=== PATIENT | female | born 1970 | race Caucasian/White ===

== ENCOUNTER → 2018-11-07 | Outpatient (CLI) | payer BC ==
--- NOTE | 2018-11-07 22:36 | MR ---
EXAMINATION TYPE: MR knee LT wo con DATE OF EXAM: 11/07/2018 COMPARISON: NONE HISTORY: Left knee pain after injury. Outer pain and swelling for 2 weeks after injury. TECHNIQUE: Multiplanar, multisequence images of the knee is performed without IV contrast. FINDINGS: MEDIAL MENISCUS: Anterior horn is intact without tear. Globular increased signal posterior horn does not distinctly extend to articular surface. LATERAL MENISCUS: Anterior and posterior horns are intact without tear. CRUCIATE LIGAMENTS: The posterior cruciate ligament is intact and unremarkable. Anterior cruciate lig ament fibers are intact with slightly irregular course and surrounding fluid and thickening noted. COLLATERAL LIGAMENTS: The medial collateral ligament and lateral collateral ligament complex are inta ct and unremarkable. EXTENSOR MECHANISM: Visualized quadriceps and patellar tendons are intact. EFFUSION: No significant suprapatellar joint effusion. POPLITEAL CYST: No popliteal/pereira cyst. TRICOMPARTMENT SPACES: Moderate narrowing patellofemoral compartment with mild spurring. Mild narrowi ng and spurring medial and lateral tibiofemoral compartments CARTILAGE: Please patella with thinning of articular cartilage posterior patellar pole, full-thicknes s loss is seen centrally sagittal image 14 and axial image 15. BONE MARROW SIGNAL: Some overall heterogeneity. Subchondral cystic change central tibial condyles not ed with [id number] tibial condylar spurring. OTHER: No additional significant abnormality is appreciated. IMPRESSION: 1. Possible intrasubstance tear posterior horn medial meniscus, no full-thickness meniscal tear. 2. No full-thickness ACL tear, myxoid degeneration felt present. 3. Mild to moderate tricompartment degenerative changes most prominent patellofemoral compartment susana ewhat pronounced for patient's age.
== END | disposition home or self-care (01) ==
LOC: RADMRIMAIN 19:18
PROVIDERS: ATTEND Family Medicine
DX: S89.92XA Unspecified injury of left lower leg, initial encounter (principal); M17.12 Unilateral primary osteoarthritis, left knee

== ENCOUNTER 2023-01-01 07:59 | Emergency (ER) | payer BC ==
[2023-01-01] MEDS ORDERED: KETOROLAC 15 MG/ML 1 ML VIAL IVP STA (08:17)
[2023-01-01] MEDS ORDERED: methylPREDNISolone SOD SUCCI 125 MG/2 ML VIAL IV STA (08:17)
[2023-01-01] MEDS ORDERED: ORPHENADRINE 30 MG/ML 2 ML VIAL IVP STA (08:17)
--- NOTE | 2023-01-01 08:40 | XR ---
EXAMINATION TYPE: XR shoulder complete LT DATE OF EXAM: 01/01/2023 COMPARISON: NONE HISTORY: Pain TECHNIQUE: Shoulder examined in 3 projections. FINDINGS: The humeral head articulates with the glenoid. The acromio-clavicular junction is normal. No acute fractures or dislocations are evident. A follow up study can be performed 7-10 days from acute trauma for continued pain. MRI can be perfor med if soft tissue evaluation would be of benefit. IMPRESSION: 1. No acute osseous left shoulder abnormality.
--- NOTE | 2023-01-01 08:41 | ED ---
Neck Injury/Pain HPI - General Chief Complaint: Neck Pain/Injury Stated Complaint: Lt arm and shoulder pain Time Seen by Provider: 01/01/23 08:06 Source: patient, RN notes reviewed Mode of arrival: ambulatory Limitations: no limitations - History of Present Illness Initial Comments: This is a 52-year-old female who presents to the emergency department for left- sided neck/shoulder pain. Patient states that she was moving around in bed this morning and started to develop pain to the left side of the neck and behind the left shoulder. She is now having numbness and tingling going down the left arm. She took 800 mg of ibuprofen without any relief in symptoms. This has happened to her before, but states that it usually goes away on its own, which has not been the case this time. Pain is worse with movement. She does note problems with rotator cuff injuries and problems with the discs in her neck. States that she has not had imaging on these areas in a long time. Denies any fevers, chills, sore throat, cough, dyspnea, chest pain, palpitations, abdominal pain, nausea, vomiting, diarrhea, or headaches. MD Complaint: neck pain - Related Data Previous Rx's Medication Instructions Recorded HYDROcodone/APAP 5-325MG [[place] 1 tab PO Q6HR PRN 3 Days #12 tab 01/01/23 5-325] methocarbamoL [Robaxin-750] 1,500 mg PO QID PRN #30 tab 01/01/23 predniSONE 50 mg PO DAILY 5 Days #5 tab 01/01/23 Allergies Allergy/AdvReac Type Severity Reaction Status Date / Time enalapril Allergy Swelling Verified 01/01/23 08:02 Review of Systems ROS Statement: Those systems with pertinent positive or pertinent negative responses have been documented in the HPI. ROS Other: All systems not noted in ROS Statement are negative. Past Medical History Past Medical History: Hypertension, Thyroid Disorder History of Any Multi-Drug Resistant Organisms: None Reported Past Surgical History: Joint Replacement, Orthopedic Surgery Additional Past Surgical History / Comment(s): head trauma with boubacar, left shoulder repair. Past Psychological History: No Psychological Hx Reported Smoking Status: Former smoker Past Alcohol Use History: Rare Past Drug Use History: None Reported General Exam Limitations: no limitations General appearance: alert, in no apparent distress Head exam: Present: atraumatic, normocephalic, normal inspection Neck exam: Present: full ROM Respiratory exam: Present: normal lung sounds bilaterally. Absent: respiratory distress, wheezes, rales, rhonchi, stridor Cardiovascular Exam: Present: regular rate, normal rhythm, normal heart sounds. Absent: systolic murmur, diastolic murmur, rubs, gallop, clicks Extremities exam: Present: other (Tenderness to palpation over the left lateral side of the neck and over the posterior aspect of the left shoulder. Range of motion of the left upper extremity induces pain. 2+ radial pulses.) Neurological exam: Present: alert, oriented X3, CN II-XII intact Psychiatric exam: Present: normal affect, normal mood Skin exam: Present: warm, dry, intact, normal color. Absent: rash Course Vital Signs 01/01/23 01/01/23 08:02 11:17 Temperature 98.6 F 98.3 F Pulse Rate 57 L 60 Respiratory 18 20 Rate Blood Pressure 185/88 158/76 O2 Sat by Pulse 99 97 Oximetry Medical Decision Making - Medical Decision Making This is a 52-year-old female who presents to the emergency department for neck and shoulder pain. Was pt. sent in by a medical professional or institution? @ -No Did you speak to anyone other than the patient for history? @ -No Did you review nursing and triage notes? @ -Yes, and I agree, it is accurate with regards to the patient's symptoms. Were old charts reviewed? @ -No Differential Diagnosis? @ -Differential Neck/Shoulder Pain: Fracture, dislocation, cervical radiculopathy, strain, AL, this is not meant to be an all-inclusive list. EKG interpreted by me (3pts min.)? @ -Not obtained X-rays interpreted by me (1pt min.)? @ -X-ray of the cervical spine and left shoulder obtained. My interpretation identifies no acute fractures. CT interpreted by me (1pt min.)? @ -Not obtained U/S interpreted by me (1pt. min.)? @ -Not obtained What testing was considered but not performed? (CT, X-rays, U/S, labs)? Why? @ -None What meds were considered but not given? Why? @ -None Did you discuss the management of the patient with other professionals? @ -No Did you reconcile home meds? @ -No Was smoking cessation discussed for >3mins.? @ -No Was critical care preformed (if so, how long)? @ -No Were there social determinants of health that impacted care today? How? (Homelessness, low income, unemployed, alcoholism, drug addiction, transportation, low edu. Level, literacy, decrease access to med. care, alf, rehab)? @ -No Was there de-escalation of care discussed even if they declined? (Discuss DNR or withdrawal of care, Hospice)? @ -No What co-morbidities impacted this encounter? (DM, HTN, Smoking, COPD, CAD, Cancer, CVA, Hep., AIDS, mental health diagnosis, sleep apnea, morbid obesity)? @ -None Was patient admitted / discharged? @ -Discharged. Patient's symptoms are all reproducible on examination. Because she has known problems with her neck and left shoulder, we did obtain imaging. X-rays of the cervical spine and left shoulder obtained revealing no acute findings. She does have degenerative changes in the cervical spine. Given the musculoskeletal tenderness with numbness and tingling, her presentation is most consistent with a cervical radiculopathy. She was given a dose of Toradol, Solu-Medrol, and Norflex. On reevaluation, the pain was still fairly prominent, and she was subsequently given a dose of Dilauded. Pain was m uch improved following the Dilaudid and the patient felt stable for discharge home. Prescription for prednisone, Robaxin, and [place] provided with dosing instructions reviewed. She is advised to take the [place] very sparingly when her pain is the most severe and I advised that the [place] and Robaxin are sedating and she should avoid driving or operating machinery when taking them. She'll otherwise follow up with her PCP for reevaluation. Undiagnosed new problem with uncertain prognosis? @ -None Drug Therapy requiring intensive monitoring for toxicity (Heparin, Nitro, Insulin, Cardizem)? @ -None Were any procedures done? @ -None Diagnosis/symptom? @ -Cervical radiculopathy Acute, or Chronic, or Acute on Chronic? @ -Acute Uncomplicated (without systemic symptoms) or Complicated (systemic symptoms)? @ -Uncomplicated Side effects of treatment? @ -None Exacerbation, Progression, or Severe Exacerbation] @ -Not applicable Poses a threat to life or bodily function? @ -No Return precautions reviewed in depth, the patient is instructed to return to the emergency department with any new, worsening, or concerning symptoms. Patient verbalized understanding. This case was discussed in detail with the attending ED physician, Dr. Weiss. Presentation, findings, and treatment plan discussed in detail as well. - Radiology Data Radiology results: report reviewed, image reviewed Disposition Clinical Impression: Strain of neck muscle, Cervical radiculopathy Disposition: HOME SELF-CARE Instructions (If sedation given, give patient instructions): Cervical Strain (ED), Cervical Radiculopathy (ED) Additional Instructions: Return to the emergency department with any new, worsening, or concerning symptoms. Take the prednisone daily for 5 days. Take the [place] sparingly when your pain is the most severe and be aware that it may make you drowsy. You can take the muscle relaxant Robaxin as 1-2 ablets up to 4 times daily. Be aware that this may also make you drowsy and you should avoid driving or operating ma chinery when taking this. You can also try applying warm moist heat to the neck and shoulder muscles. Follow up with your primary care provider in 1-2 days. Prescriptions: HYDROcodone/APAP 5-325MG [[place] 5-325] 1 tab PO Q6HR PRN 3 Days #12 tab PRN Reason: Pain predniSONE 50 mg PO DAILY 5 Days #5 tab methocarbamoL [Robaxin-750] 1,500 mg PO QID PRN #30 tab PRN Reason: Pain Is patient prescribed a controlled substance at d/c from ED?: Yes When asked, does pt state using other controlled substances?: No If prescribed controlled substance>3 days was MAPS reviewed?: Prescribed <3 Days Referrals: Phuc Cassidy DO [Primary Care Provider] - 1-2 days
--- NOTE | 2023-01-01 08:42 | XR ---
EXAMINATION TYPE: XR cervical spine comp DATE OF EXAM: 01/01/2023 COMPARISON: None HISTORY: Pain TECHNIQUE: 3 view cervical spine FINDINGS: Prevertebral space is normal. Posterior spinal lamellar line is intact. Vertebral body alig nment is preserved. Vertebral body heights are preserved. There is some disc space narrowing present at C5-6 C6-7. Neural foramen are patent. The odontoid is limited with overlying maxilla. IMPRESSION: 1. Mild degenerative disc changes C5-6 C6-7
[2023-01-01] MEDS ORDERED: HYDROmorphone 0.5 MG/0.5 ML SYRINGE IVP STA (09:52)
[2023-01-01 11:17] VITALS: BP 158/76; PULSE 60; RESP 20; TEMP 98.3
== END 2023-01-01 11:17 | disposition home or self-care (01) ==
LOC: EC 07:59
DX: S16.1XXA Strain of muscle, fascia and tendon at neck level, initial encounter (principal); M47.812 Spondylosis without myelopathy or radiculopathy, cervical region; I10 Essential (primary) hypertension; Z87.891 Personal history of nicotine dependence; Z88.8 Allergy status to other drugs, medicaments and biological substances; X58.XXXA Exposure to other specified factors, initial encounter
CPT/HCPCS: 72050; 73030; 99283; 96374; 96375 ×3; J2360; J2930; J1885; J1170

== ENCOUNTER → 2023-09-08 | Outpatient (CLI) | payer BC ==
--- NOTE | 2023-09-09 14:23 | CA ---
Transthoracic Echo Report Name: Ed Benavides Age: 53 Gender: F : 1970 Exam Date: 09/08/2023 13:45 Exam Location: [facility] Ht (in): 63 Wt (lb): 255 Ordering Physician: Marco A Orellana DO Attending/Referring Phys: Marco A Orellana DO Dice Manager [employer] Petersen R[facility] Procedure CPT: Indications: R60.9 Edema, unspecified Cardiac Hx: Technical Quality: Technically difficult study Contrast 1: Definity Total Dose (mL): 2 Contrast 2: Total Dose (mL): MEASUREMENTS (Male / Female) Normal Values 2D ECHO LV Diastolic Diameter PLAX 5.1 cm 4.2 - 5.9 / 3.9 - 5.3 cm LV Systolic Diameter PLAX 3.6 cm IVS Diastolic Thickness 0.7 cm 0.6 - 1.0 / 0.6 - 0.9 cm LVPW Diastolic Thickness 0.9 cm 0.6 - 1.0 / 0.6 - 0.9 cm LV Relative Wall Thickness 0.3 RV Internal Dim ED PLAX 2.7 cm LVOT Diameter 2.2 cm LV Diastolic Volume MOD BP 116.5 cm??? 67 - 155 / 56 - 104 cm??? LV Systolic Volume MOD BP 48.8 cm??? 22 - 58 / 19 - 49 cm??? LV Ejection Fraction MOD BP 58.1 % >= 55 % LV Cardiac Index MOD BP 1624.1 cm???/min???m??? LV Diastolic Volume MOD 4C 130.7 cm??? LV Systolic Volume MOD 4C 51.3 cm??? LV Ejection Fraction MOD 4C 60.8 % LV Cardiac Index MOD 4C 1904.3 cm???/min???m??? LV Diastolic Length 4C 9.2 cm LV Systolic Length 4C 7.5 cm LV Diastolic Volume MOD 2C 98.5 cm??? LV Systolic Volume MOD 2C 44.5 cm??? LV Ejection Fraction MOD 2C 54.9 % LV Cardiac Index MOD 2C 1296.4 cm???/min???m??? LV Diastolic Length 2C 8.7 cm LV Systolic Length 2C 7.2 cm LA Volume 72.2 cm??? 18 - 58 / 22 - 52 cm??? LA Volume Index 30.9 cm???/m??? 16 - 28 cm???/m??? Ascending Aorta Diameter 3.2 cm DOPPLER AV Peak Velocity 188.6 cm/s AV Peak Gradient 14.2 mmHg AV Mean Velocity 110.8 cm/s AV Mean Gradient 5.9 mmHg AV Velocity Time Integral 37.3 cm LVOT Peak Velocity 145.0 cm/s LVOT Peak Gradient 8.4 mmHg LVOT Velocity Time Integral 31.7 cm LVOT Stroke Volume 123.9 cm??? LVOT Stroke Volume Index 57.8 ml/m??? LVOT Cardiac Index 2971.3 cm???/min???m??? AV Area Cont Eq vti 3.3 cm??? AV Area Cont Eq pk 3.0 cm??? MV Area PHT 4.2 cm??? Mitral E Point Velocity 89.5 cm/s Mitral A Point Velocity 87.3 cm/s Mitral E to A Ratio 1.0 MV Deceleration Time 178.7 ms FINDINGS Left Ventricle Left ventricular ejection fraction is estimated at 55-60 %. Left ventricular wall thickness normal. No obvious regional wall motion abnormalities. Mildly increased left ventricular diastolic volume. Right Ventricle Normal right ventricular size and function. Unable to estimte right ventricular systolic pressures. Right Atrium Normal right atrial size. Left Atrium Mildly increased left atrial volume. Mildly increased left atrial area. Mitral Valve Structurally normal mitral valve. No evidence for mitral valve prolapse. No mitral stenosis. No mitral regurgitation. Aortic Valve Trileaflet aortic valve. No aortic valve stenosis or regurgitation. Tricuspid Valve Structurally normal tricuspid valve. No tricuspid stenosis. No tricuspid regurgitation. Pulmonic Valve Pulmonic valve not well visualized. No pulmonic stenosis. No pulmonic regurgitation. Pericardium No pericardial effusion. Aorta Normal size aortic root and proximal ascending aorta. CONCLUSIONS Normal systolicfunction Mild leftatrialenlargement Previewed by: Dr. Jesus Rosales MD (Electronically Signed) Final Date: 09 September 2023 14:22
== END | disposition home or self-care (01) ==
LOC: RADECHMAIN 13:22
PROVIDERS: ATTEND Family Medicine
DX: R60.9 Edema, unspecified (principal)
CPT/HCPCS: 93306; Q9957